=== PATIENT | female | born 1945 | race Caucasian/White ===

== ENCOUNTER 2016-12-25 12:47 | Outpatient (CLI) | payer MEDICARE, OTHER | END 2016-12-25 12:48 | disposition home or self-care (01) | DX: N30.01 Acute cystitis with hematuria (principal) ==

== ENCOUNTER 2017-08-04 11:17 | Emergency (ER) | payer MEDICARE, OTHER ==
--- NOTE | 2017-08-04 12:22 | XRAY Preliminary Report ---
Exam: XR Shoulder 3 View LT IMPRESSION: 1. No acute fracture or destructive bony process. 2. Calcifications about the humeral head may be dystrophic/capsular. Intra-articular loose bodies not excluded. Consider MRI for further evaluation if there is concern for internal derangement. [facility] SITE ID: [id number]
--- NOTE | 2017-08-04 12:24 | XRAY Report ---
EXAM: LEFT SHOULDER RADIOGRAPHY EXAM DATE: 08/04/2017 12:07 PM. CLINICAL HISTORY: Pain with rom, no known injury. COMPARISON: None. TECHNIQUE: 3 views. FINDINGS: Bones: Diffuse demineralization. No acute fracture or destructive process. Joints: Degenerative changes noted about the glenohumeral and acromioclavicular joints. Soft tissue c alcifications about the humeral head may be dystrophic/capsular. Intra-articular loose bodies not exc luded radiographically. Soft tissues: The visualized hemithorax is unremarkable. No soft tissue swelling. IMPRESSION: 1. No acute fracture or destructive bony process. 2. Calcifications about the humeral head may be dystrophic/capsular. Intra-articular loose bodies not excluded. Consider MRI for further evaluation if there is concern for internal derangement. [facility] Referring Provider Line: [phone] SITE ID: [id number]
[2017-08-04] MEDS ORDERED: HYDROcod/ACETAM 5/325 MG TABLET PO STA (13:20)
--- NOTE | 2017-08-04 13:21 | ED Physician Documentation ---
PD HPI UPPER EXT INJURY - Stated complaint Stated Complaint: L SHOULDER PX - Chief complaint Chief Complaint: Ext Problem - History obtained from History obtained from: Patient - History of Present Illness Location: Other (She had a surgical procedure on her left shoulder approximately 15 years ago, cleaning out some calcifications it sounds like. Progressively over the last week and a half she has had pain over the lateral shoulder and severe pain with any range of motion without fevers. 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 - Present Medications Home Medications: Ambulatory Orders Medication Instructions Recorded Confirmed Lorazepam [Lorazepam] 1 tab ORAL DAILY 01/23/17 08/04/17 Citalopram [CeleXA] 10 mg PO DAILY 08/04/17 08/04/17 HYDROcod/ACETAM 5/325 [Harrington 5/325] 1 - 2 ea PO Q6H PRN #15 tablet 08/04/17 - Allergies Allergies/Adverse Reactions: Allergies Allergy/AdvReac Type Severity Reaction Status Date / Time No Known Drug Allergies Allergy Verified 08/04/17 11:31 - Social History Does the pt smoke?: No Smoking Status: Never smoker - Immunizations Immunizations are current?: Yes PD ED PE NORMAL - Vitals Vital signs reviewed: Yes - General General: Alert and oriented X 3, No acute distress - Neck Neck: Supple, no meningeal sign, No bony TTP - Extremities Extremities: Other (Tenderness laterally over the glenohumeral joint, she has full range of motion can only abduct to 90 without pain though. Positive supraspinatus testing. No warmth or redness.) - Neuro Neuro: Alert and oriented X 3, Normal speech - Psych Psych: Normal mood, Normal affect Results - Vitals Vitals: Vital Signs - 24 hr 08/04/17 11:28 Temperature 36.5 C Heart Rate 80 Respiratory 14 Rate Blood Pressure 118/67 O2 Saturation 100 Oxygen O2 Source Room air - Rads (name of study) Left shoulder, 3 views Radiology: EMP read contemporaneously (Calcifications around the humeral head, could be dystrophic or capsular, intra-articular loose bodies are not excluded.) Departure - Departure Disposition: 01 Home, Self Care Clinical Impression: Shoulder pain, left Qualifiers: Chronicity: acute Qualified Code(s): M25.512 - Pain in left shoulder Condition: Good Record reviewed to determine appropriate education?: Yes Instructions: ED Torn Rotator Cuff Follow-Up: Malathi Weir PA [Primary Care Provider] - Prescriptions: HYDROcod/ACETAM 5/325 [Harrington 5/325] 1 - 2 ea PO Q6H PRN #15 tablet PRN Reason: Pain Comments: Do not drink or drive while taking narcotic pain medication. Note that many narcotic pain relievers also contain Tylenol/acetaminophen. Please ensure that your total dose of acetaminophen from all sources does not exceed 3 g (3000 mg) per day. You may get constipated while on this medication. Take a stool softener such as Colace twice a day while you are on it. Also add an [id number]-[id number] laxative such as senna or MiraLAX on any day that you do not have a bowel movement. If you received a narcotic pain medication or sedative while in the emergency department, do not drive for the next 24 hours.
[2017-08-04] MEDS ORDERED: HYDROcod/ACETAM 5/325 MG TABLET ONE (13:30)
[2017-08-04 13:33] VITALS: BP 160/72
== END 2017-08-04 13:39 | disposition home or self-care (01) ==
LOC: ED 11:17
DX: M25.512 Pain in left shoulder (principal)
CPT/HCPCS: 99283

== ENCOUNTER 2018-07-05 14:49 | Outpatient (CLI) | payer MEDICARE, OTHER ==
--- NOTE | 2018-07-08 08:40 | DEXA Report ---
Procedure Date: 07/05/2018 Accession Number: [id number] / [id number] Procedure: DEX - Dexa Spine and/or Hip CPT Code: FULL RESULT: EXAM: Dexa Spine and/or Hip DATE: 07/05/2018 3:52 PM CLINICAL HISTORY: POST MENOPAUSAL, OSTEOPENIA TECHNIQUE: Dual energy x-ray absorptiometry (DXA) was performed on a IPG System. Regions measured are the AP Spine, femoral neck, and if needed forearm. COMPARISON: None. In accordance with the International Society for Clinical Densitometry (ISCD) guidelines, data from previous exams may be reanalyzed using current recommendations and techniques. This is done to allow a more accurate basis for comparison with the current study. FINDINGS: The data for the lumbar spine is as follows: BMD (g/cm/cm) T-SCORE Z-SCORE REGION L1 0.891 -2.0 0.0 L2 0.968 -1.9 0.1 L3 1.040 -1.3 0.6 L4 0.989 -1.8 0.2 TOTAL 0.977 -1.7 0.3 NOTE: All evaluable vertebrae are used for classification The data for the hip is as follows: BMD (g/cm/cm) T-SCORE Z-SCORE REGION Neck 0.702 -2.4 -0.5 TOTAL 0.701 -2.4 -0.7 NOTE: The femoral neck or total proximal femur, whichever is lowest, is used for classification. IMPRESSION: THE WHO CLASSIFICATION BASED ON THE INTERNATIONAL REFERENCE STANDARD IS OSTEOPENIA. THE FRACTURE RISK IS INCREASED. RECOMMENDATION: Patients with diagnosis of osteoporosis or osteopenia should have regular bone mineral density assessment. For those eligible for Medicare, routine testing is allowed once every 2 years. Testing frequency can be increased for patients who have rapidly progressing disease or for those who are receiving medical therapy to restore bone mass. COMMENT: World Health Organization (WHO) definitions for osteoporosis and osteopenia: NORMAL BMD: T-score at -1.0 or higher, fracture risk is low OSTEOPENIA BMD: T-score between -1.0 and -2.5, fracture risk is increased. OSTEOPOROSIS BMD: T-score at -2.5 or lower, fracture risk is high. National Osteoporosis Foundation recommends: 1. Obtain adequate dietary calcium (at least 1200 mg per day) and vitamin D (400-800 international units per day). 2. Participate, as appropriate, in regular weightbearing and muscle-strengthening exercise. 3. Avoid tobacco use and reduce alcohol and caffeine intake. 4. For more detailed information see the website at www.NOF.org.
== END 2018-07-05 14:50 | disposition home or self-care (01) ==
LOC: DI 14:49
PROVIDERS: ATTEND Physician Assistant
DX: M85.89 Other specified disorders of bone density and structure, multiple sites (principal); Z78.0 Asymptomatic menopausal state
CPT/HCPCS: 77080

== ENCOUNTER 2020-03-29 18:58 | Outpatient (CLI) | payer MEDICARE, OTHER | END 2020-03-29 18:59 | disposition home or self-care (01) | LOC: COV 18:58 | PROVIDERS: ATTEND Family Medicine | DX: R53.83 Other fatigue (principal); R68.83 Chills (without fever) | CPT/HCPCS: 81599 ==

== ENCOUNTER 2020-06-11 15:37 | Outpatient (CLI) | payer MEDICARE, OTHER | END 2020-06-11 15:38 | disposition short-term general hospital (02) | LOC: EMS 15:37 | PROVIDERS: ATTEND Surgery | DX: R12 Heartburn (principal) | CPT/HCPCS: A0425; A0429 ==

== ENCOUNTER 2020-06-18 07:00 | Outpatient (CLI) | payer MEDICARE, OTHER | END 2020-06-18 23:59 | disposition home or self-care (01) | LOC: LAB.R 07:00 | PROVIDERS: ATTEND Registered Nurse | DX: Z11.59 Encounter for screening for other viral diseases (principal) ==

== ENCOUNTER 2020-11-08 12:12 | Outpatient (CLI) | payer MEDICARE, OTHER ==
--- NOTE | 2020-11-08 12:58 | XRAY Report ---
PROCEDURE: Knee 3 View LT INDICATIONS: PAIN IN LEFT KNEE TECHNIQUE: 3 views of the left knee(s) were acquired. COMPARISON: None. FINDINGS: Bones: No fractures or dislocations. Minimal joint space narrowing. No suspicious bony lesions. Soft tissues: No significant joint effusion. No suspicious soft tissue calcifications. IMPRESSION: Minimal left knee DJD. Reviewed by: Carson Benitez MD on 11/08/2020 11:57 AM [facility] Approved by: Carson Benitez MD on 11/08/2020 11:57 AM [facility] Station ID: [id number]
--- NOTE | 2020-11-08 13:07 | XRAY Report ---
PROCEDURE: Hips 3-4V BILAT INDICATIONS: PAIN IN RIGHT HIP JOINT TECHNIQUE: 3 views of the hip were acquired. COMPARISON: DEXA scan 02/02/2014. FINDINGS: Bones: No fractures or dislocations. There may be mild left inferior pelvic tilt. Mild symmetric hip joint space narrowing. No subchondral collapse. No suspicious bony lesions. The visualized pelvic r ing appears intact. Soft tissues: No suspicious soft tissue calcifications or masses. IMPRESSION: Mild symmetric bilateral hip DJD. Reviewed by: Carson Benitez MD on 11/08/2020 12:05 PM [facility] Approved by: Carson Benitez MD on 11/08/2020 12:05 PM [facility] Station ID: [id number]
== END 2020-11-08 12:13 | disposition home or self-care (01) ==
LOC: DI.S 12:12
PROVIDERS: ATTEND Registered Nurse
DX: M17.12 Unilateral primary osteoarthritis, left knee (principal); M16.0 Bilateral primary osteoarthritis of hip

== ENCOUNTER 2021-02-23 10:33 | Outpatient (CLI) | payer MEDICARE, OTHER ==
--- NOTE | 2021-02-24 08:25 | Mammography Report ---
BILATERAL DIGITAL SCREENING MAMMOGRAM 3D/2D WITH EXAGGERATED CC: 02/23/2021 CLINICAL: Routine screening. Comparison is made to exams dated: 06/19/2015 mammogram and 02/02/2014 mammogram - [facility]. The tissue of both breasts is heterogeneously dense. This may lower the sensitivity of ma mmography. There are benign post operative findings in the right breast. No significant masses, calcifications, or other findings are seen in either breast. There has been no significant interval change. IMPRESSION: BENIGN There is no mammographic evidence of malignancy. A 1 year screening mammogram is recommended. This exam was interpreted at Station ID: [id number]. NOTE: For mammograms, a report in lay terms will be sent to the patient. Approximately 15% of breast malignancies will not be visualized mammographically. In the management of a palpable breast mass, a negative mammogram must not discourage biopsy of a clinically suspicious lesion. Electronically Signed By: Carolyn galvan/penrad:02/23/2021 11:58:39 ACR BI-RADS Category 2: Benign Finding(s) 3342F PARENCHYMAL PATTERN: (D) - The breast(s) demonstrate(s) heterogeneously dense fibroglandular parenchy ma. BI-RADS CATEGORY: (2) - 2 RECOMMENDATION: (ANNUAL) - Recommend routine annual screening mammography. [id number] 1 year screening LATERALITY: (B)
== END 2021-02-23 10:34 | disposition home or self-care (01) ==
LOC: DI.S 10:33
DX: Z12.31 Encounter for screening mammogram for malignant neoplasm of breast (principal)

== ENCOUNTER 2021-06-29 11:39 | Outpatient (CLI) | payer MEDICARE, OTHER | END 2021-06-29 11:40 | disposition home or self-care (01) | LOC: LAB.S 11:39 | PROVIDERS: ATTEND Registered Nurse | DX: C56.9 Malignant neoplasm of unspecified ovary (principal) | CPT/HCPCS: 36415; 86304 ==

== ENCOUNTER 2021-09-04 07:00 | Outpatient (CLI) | payer MEDICARE, OTHER | END 2021-09-04 23:59 | disposition home or self-care (01) | LOC: LAB 07:00 | PROVIDERS: ATTEND Emergency Medicine | DX: R05.9 Cough, unspecified (principal); Z20.822 Contact with and (suspected) exposure to COVID-19 ==

== ENCOUNTER 2021-09-04 07:00 | Outpatient (CLI) | payer MEDICARE, OTHER ==
[2021-09-04 20:39] LABS: RESPIRATORY SYNCYTIAL VIRUS POSITIVE (Negative)
== END 2021-09-04 23:59 | disposition home or self-care (01) ==
LOC: LAB 07:00
PROVIDERS: ATTEND Emergency Medicine
DX: R05.9 Cough, unspecified (principal); J06.9 Acute upper respiratory infection, unspecified; Z20.822 Contact with and (suspected) exposure to COVID-19
CPT/HCPCS: 87275; 87276; 87280; U0004

== ENCOUNTER 2021-09-26 12:21 | Outpatient (CLI) | payer MEDICARE, OTHER | END 2021-09-26 12:22 | disposition home or self-care (01) | LOC: LAB.S 12:21 | PROVIDERS: ATTEND Registered Nurse | DX: C56.9 Malignant neoplasm of unspecified ovary (principal) | CPT/HCPCS: 36415; 86304 ==

== ENCOUNTER 2021-12-29 13:31 | Outpatient (CLI) | payer MEDICARE, OTHER | END 2021-12-29 13:32 | disposition home or self-care (01) | LOC: LAB.S 13:31 | PROVIDERS: ATTEND Registered Nurse | DX: C56.9 Malignant neoplasm of unspecified ovary (principal) | CPT/HCPCS: 36415; 86304 ==

== ENCOUNTER 2023-05-22 13:17 | Outpatient (CLI) | payer MEDICARE, OTHER ==
[2023-05-22 19:54] LABS: BASOPHILS # (AUTO) 0.1 10^3/uL (0.0-0.1); BASOPHILS % (AUTO) 1.2 %; EOSINOPHILS # (AUTO) 0.4 10^3/uL (0.0-0.7); EOSINOPHILS % (AUTO) 4.8 %; HCT - HEMATOCRIT 40.7 % (37.0-47.0); HGB - HEMOGLOBIN 13.2 g/dL (12.0-16.0); LYMPHOCYTES # (AUTO) 3.6 10^3/uL (1.5-3.5); LYMPHOCYTES % (AUTO) 39.4 %; MEAN CORPUSCULAR HEMOGLOBIN 30.9 pg (27.0-31.0); MEAN CORPUSCULAR HGB CONC 32.4 g/dL (32.0-36.0); MEAN CORPUSCULAR VOLUME 95.3 fL (81.0-99.0); MEAN PLATELET VOLUME 10.5 fL (7.9-10.8); MONOCYTES # (AUTO) 1.1 10^3/uL (0.0-1.0); MONOCYTES % (AUTO) 12.3 %; NEUTROPHILS # (AUTO) 3.9 10^3/uL (1.5-6.6); NEUTROPHILS % (AUTO) 42.2 %; PLT - PLATELET COUNT 346 10^3/uL (130-450); RED BLOOD COUNT 4.27 10^6/uL (4.20-5.40); WHITE BLOOD COUNT 9.2 x10^3/uL (4.8-10.8)
[2023-05-22 20:00] LABS: ALBUMIN 3.6 g/dL (3.2-5.5); ALBUMIN/GLOBULIN RATIO 1.3 (1.0-2.2); BILIRUBIN,TOTAL 0.5 mg/dL (0.2-1.0); CALCIUM 8.8 mg/dL (8.5-10.3); CREATININE 0.6 mg/dL (0.4-1.0); POTASSIUM 4.1 mmol/L (3.5-5.0); TOTAL PROTEIN 6.3 g/dL (6.7-8.2)
[2023-05-22 20:13] LABS: CA 125 69.5 U/mL (0.0-35.0)
[2023-05-22 20:17] LABS: THYROID STIMULATING HORMONE 2.09 uIU/mL (0.34-5.60)
== END 2023-05-22 13:18 | disposition home or self-care (01) ==
LOC: LAB.S 13:17
PROVIDERS: ATTEND Nurse Practitioner Adult Health
DX: C56.9 Malignant neoplasm of unspecified ovary (principal); R53.83 Other fatigue; R53.81 Other malaise
CPT/HCPCS: 36415; 80053; 84443; 85025; 86304

== ENCOUNTER 2023-09-10 11:06 | Outpatient (CLI) | payer MEDICARE, OTHER ==
[2023-09-10 16:48] LABS: CREATININE 0.6 mg/dL (0.6-1.3)
== END 2023-09-10 11:07 | disposition home or self-care (01) ==
LOC: LAB.S 11:06
PROVIDERS: ATTEND Registered Nurse
DX: C56.9 Malignant neoplasm of unspecified ovary (principal)
CPT/HCPCS: 36415; 82565

== ENCOUNTER 2023-09-21 12:28 | Outpatient (CLI) | payer MEDICARE, OTHER ==
[2023-09-21] MEDS ORDERED: iohexoL-300 100 ML VIAL IVP ONE (14:56)
[2023-09-21] MEDS ORDERED: BARIUM SULFATE 1,900 ML BOTTLE RC ONE (14:57)
--- NOTE | 2023-09-21 16:13 | CT Report ---
PROCEDURE: ABDOMEN/PELVIS W INDICATIONS: TUMOR OF OVARY CONTRAST: 100ml omni 300 TECHNIQUE: After the administration of oral and intravenous contrast, 5 mm thick sections acquired from the diap hragms to the symphysis. 5 mm thick coronal and sagittal reformats were acquired. For radiation dos e reduction, the following was used: automated exposure control, adjustment of mA and/or kV accordin g to patient size. COMPARISON: None FINDINGS: Image quality: Excellent. Lung bases and heart: Calcified pleural lesions along the right hemidiaphragm, largest measuring 1.6 cm (series 3, image 12). Noncalcified juxtapleural nodule measuring 1.0 cm (series 3, image 12). Calc ified cardiophrenic lymph nodes versus additional calcified pleural plaque along the anterior margin (series 2, image 10). Partially calcified paraesophageal node measuring 0.9 cm (series 2, image 12). Liver: 1.1 cm focus of hyperattenuation in segment 3 of the liver (series 2, image 24). Gallbladder and biliary tree: No radiopaque stones or wall thickening. No biliary dilation. Spleen: No splenomegaly. Pancreas: No pancreatic ductal dilation. Adrenals: 3.6 cm left adrenal nodule. Kidneys and ureters: No hydronephrosis. No renal cystic lesion which requires follow up. No solid mas s. Bowel and peritoneum: No bowel distension. No pathologic free fluid. Calcified anterior omental nodul e measuring 1.5 cm in the left upper quadrant (series 2, image 37). Calcified peritoneal nodule in th e right lower quadrant measuring 1.5 cm (series 2, image 55). Lymph nodes: No central or retroperitoneal adenopathy. Vessels: No infrarenal aortic aneurysm. PELVIS Reproductive organs: Hysterectomy and bilateral salpingo-oophorectomy. No pelvic mass. Bladder: No abnormal wall thickening, accounting for underdistension. Pelvic lymph nodes: No pelvic adenopathy by size criteria. Bones: No aggressive osseous abnormality. Other: No significant ventral or inguinal hernia. IMPRESSION: 1.Hysterectomy and bilateral salpingo-oophorectomy. No pelvic mass or pelvic adenopathy. 2.Calcified peritoneal deposits, presumably treated metastases. 3.Small focus of hyperattenuation in segment 2 of the liver. Metastatic disease not excluded. 4.3.6 cm left adrenal mass. 5.Calcified and noncalcified pleural plaques of the right hemiabdomen, likely treated disease. 6.Calcified paraesophageal node. Reviewed by: Rafa Mckinney on 09/21/2023 4:12 PM PDT Approved by: Rafa Mckinney on 09/21/2023 4:12 PM PDT Station ID: [id number]
== END 2023-09-21 12:29 | disposition home or self-care (01) ==
LOC: DI 12:28
PROVIDERS: ATTEND Registered Nurse
DX: Z08 Encounter for follow-up examination after completed treatment for malignant neoplasm (principal); Z85.43 Personal history of malignant neoplasm of ovary; Z90.710 Acquired absence of both cervix and uterus; Z90.722 Acquired absence of ovaries, bilateral; R93.5 Abnormal findings on diagnostic imaging of other abdominal regions, including retroperitoneum; R16.0 Hepatomegaly, not elsewhere classified; J92.9 Pleural plaque without asbestos; R59.0 Localized enlarged lymph nodes
CPT/HCPCS: 74177; A9270; Q9967

== ENCOUNTER 2023-11-10 20:25 | Outpatient (CLI) | payer MEDICARE, OTHER | END 2023-11-10 20:26 | disposition critical access hospital (66) | LOC: EMS 20:25 | PROVIDERS: ATTEND Emergency Medicine | DX: F03.911 Unspecified dementia, unspecified severity, with agitation (principal) | CPT/HCPCS: A0425; A0429 ==

== ENCOUNTER 2023-11-10 21:04 | Emergency (ER) | payer MEDICARE, OTHER ==
[2023-11-10] MEDS ORDERED: OLANZapine ODT 5 MG TABLET TL ONE (21:06)
--- NOTE | 2023-11-10 21:10 | ED Physician Documentation ---
History of Present Illness - Stated complaint Stated Complaint: CONFUSION/VANE - Chief complaint Chief Complaint: MHE - History obtained from History obtained from: Patient - Additonal information Additional information: 78-year-old female with history of metastatic cancer, advanced dementia on hospice presents by EMS from her home for agitation. History is obtained from EMS, who state that the patient was attempting to leave her home. She has 24/7 caregivers at home and when they attempted to prevent the patient from leaving she became agitated and combative. EMS states that the patient's arrived she was very frustrated that the patient's agitation does not seem to be controlled with normal medications and she is at her wits end. She stated that the patient is going to be placed in a memory care unit in 4 days, but she does not know how to deal with the patient's agitation at home. I also spoke with the hospice doctor, Dr. Patel, who stated that there have been [id number] issues with the patient's Ativan and Seroquel dosing. When dosing of these medications is increased there is concern that the patient is wobbly and not acting right, but when the doses are decreased patient's agitation worsens at night. 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 - Present Medications Home Medications: Ambulatory Orders Medication Instructions Recorded Confirmed Alprazolam [Xanax] 0.5 mg PO QID 11/10/23 11/10/23 Morphine Oral Soln [Roxanol] 0.5 ml PO PRN PRN 11/10/23 11/10/23 Naproxen Sodium [Aleve] 220 mg PO DAILY 11/10/23 11/10/23 Quetiapine Fumarate [Seroquel] 50 mg PO QID 11/10/23 11/10/23 Sertraline HCl 100 mg PO DAILY 11/10/23 11/10/23 - Allergies Allergies/Adverse Reactions: Allergies Allergy/AdvReac Type Severity Reaction Status Date / Time No Known Drug Allergies Allergy Verified 11/10/23 21:16 - Social History Does the pt smoke?: No Smoking Status: Never smoker - Immunizations Immunizations are current?: Yes PD ED PE NORMAL - Vitals Vital signs reviewed: Yes - General General: No acute distress - Cardiac Cardiac: RRR - Respiratory Respiratory: No respiratory distress - Abdomen Abdomen: Soft, Non tender, Non distended - Derm Derm: Normal color, Warm and dry, No rash - Extremities Extremities: No deformity, Normal ROM s pain - Neuro 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 She is currently calm and cooperative, nonviolent with staff. Had an at length discussion with hospice nurse, Dr. Patel, and . is demanding that we keep the patient for 72 hours due to psychiatric issues. I explained that I could not hold the patient in the emergency department as her behavioral issues are related to dementia and not psychiatric disturbance. Hospice will increase patient's seroquel to 50mg scheduled q3H and can increase patient's Xanax as needed for agitation and anxiety. Hospice nurse states that they have plenty of medications at home for this regimen and they do not need any refills, and she will meet the patient at the home to ensure everything goes according to plan. agrees to take patient back home if we can help make the patient sleep through the night. Patient was given numerous medications to induce sleep. She was somnolent but easily arousable when EMS arrived to transport patient back to her home. Departure - Departure Disposition: Home, Self Care Clinical Impression: Dementia Qualifiers: Dementia type: unspecified type Dementia severity: severe Dementia behavioral or psychological symptom: with agitation Qualified Code(s): F03.C11 - Unspecified dementia, severe, with agitation Condition: Stable Instructions: ED Dementia Caregiver Support Comments: Starting at home Seroquel will be administered 50 mg 3 hours [id number] for agitation. In addition I discussed with Letha about continuing Xanax 0.5 mg 3 times daily, with 1 mg additional administered for breakthrough agitation. Forms: PCP List Discharge Date/Time: 11/10/23 23:18
[2023-11-10 21:23] VITALS: O2SAT 97
[2023-11-10] MEDS ORDERED: diphenhydrAMINE 25 MG CAPSULE PO STA (21:46)
[2023-11-10] MEDS ORDERED: LORazepam 1 MG TABLET PO STA (21:46)
[2023-11-10] MEDS: OLANZapine ODT 5 MG TABLET TL STA ×2 (22:20→23:17)
[2023-11-10] MEDS ORDERED: HALOPERIDOL 5 MG/ML VIAL IM STA (22:31)
[2023-11-10] MEDS ORDERED: HALOPERIDOL 5 MG/ML VIAL ONE (22:33)
[2023-11-10] MEDS ORDERED: diphenhydrAMINE INJ 50 MG/ML VIAL IM STA (22:54)
== END 2023-11-10 23:18 | disposition home or self-care (01) ==
LOC: EDUNIT# → ED 21:04
DX: F03.C11 Unspecified dementia, severe, with agitation (principal)
CPT/HCPCS: 96372; 99283; 99284; A9270; J1200; J8499

== ENCOUNTER 2023-11-10 21:53 | Outpatient (CLI) | payer MEDICARE, OTHER | END 2023-11-10 21:54 | disposition home or self-care (01) | LOC: EMS 21:53 | PROVIDERS: ATTEND Emergency Medicine | DX: Z51.5 Encounter for palliative care (principal); F03.911 Unspecified dementia, unspecified severity, with agitation | CPT/HCPCS: A0425; A0428 ==